=== PATIENT | female | born 1930 | race Caucasian/White ===

== ENCOUNTER 2016-08-01 17:02 | Observation (INO) | payer MEDICARE, BC ==
[~2016-08-01] VITALS: Ht 157.5 cm; Wt 71.3 kg
[2016-08-01] VITALS (7 sets, daily range): BP systolic 144–171; BP diastolic 70–97; PULSE 68–76; RESP 16–18; TEMP 97–97.4; O2SAT 95–99
[~2016-08-01 17:02] MED LIST: CALC500T42 PO; CARV3.125 PO; DOXY100T PO; DYAZ37.52 PO; FISH1000 PO; SYNT25TA PO; TAB-TAB PO; Z.0.OXYGEN INH
[2016-08-01] MEDS ORDERED: ASPIRIN 81 MG CHEW TAB PO ONE (17:15)
[2016-08-01] MEDS ORDERED: SODIUM CHLORIDE 0.9% FLUSH 5 ML FLUSH IVF PRN ×2 (17:15→18:45)
[2016-08-01] MEDS ORDERED: ACETAMINOPHEN 325 MG TAB PO ONE (17:30)
[2016-08-01] MEDS: NITROGLYCERIN 0.4 MG SL 25 TABS/BTL SL SCH ×3 (17:30→17:40)
[2016-08-01 17:31] LABS: AUTOMATED NEUTROPHIL # 3.4 TH/MM3 (1.8-7.7); BASOPHIL % 0.6 % (0.0-2.0); EOSINOPHIL # 0.1 TH/MM3 (0-0.4); EOSINOPHIL % 2.3 % (0.0-4.0); HEMO FLAGS DIFF FINAL; LYMPH % 26.5 % (9.0-44.0); LYMPHOCYTE # 1.5 TH/MM3 (1.0-4.8); MEAN CELL VOLUME 92.8 FL (80.0-100.0); MEAN CORPUSCULAR HEMOGLOBIN 31.2 PG (27.0-34.0); MEAN CORPUSCULAR HGB CONC 33.6 % (32.0-36.0); MONO % 9.6 % (0.0-8.0); PLATELET COUNT 218 TH/MM3 (150-450); RED CELL DISTRIBUTION WIDTH 12.1 % (11.6-17.2); WHITE BLOOD COUNT 5.5 TH/MM3 (4.0-11.0)
--- NOTE | 2016-08-01 17:33 | PD ---
HPI Chief Complaint: Chest Pain Time Seen by Provider: 17:15 Travel History International Travel<30 days: No Contact w/Intl Traveler<30days: No Traveled to known affect area: No History of Present Illness HPI Patient is an 85-year-old female with history of hypertension, emphysema, pacemaker, who presents to emergency room with complaints of chest pain. Patient reports that she woke up this morning and had chest pain. Patient reports that chest pain is located in her left breast, reports that pain feels like a pressure to her chest. Patient reports shortness of breath and diaphoresis with the chest pain. Reports that nothing makes the chest pain better or worse. Reports that she has had hx of similar chest pains in the past and does see Dr Vargas in the office. Reports that between her pmp certified project manager and rn interventional, it was decided that the patient go for a cardiac catheterization on August 08, 2016 to see if she has CAD. Patient reports that she has had multiple episodes of similar chest pain episodes, reports that she is prescribed nitroglycerin for her pain but does not like taking this medication as this causes her to have a headache. PFSH Past Medical History Hx Anticoagulant Therapy: No Heart Rhythm Problems: Yes Cardiac Catheterization: Yes (X 2) Cardiovascular Problems: Yes (CHOL, PACER ) COPD: Yes Coronary Artery Disease: Yes Diabetes: No Diminished Hearing: No Respiratory: Yes (EMPHYSEMA) Pneumonia: Yes Thyroid Disease: Yes ?: Not Menopausal: Yes Past Surgical History Hysterectomy: Yes Pacemaker: Yes Thoracic Surgery: Yes (PLEURAL EMPYEMA SURGERY X 12, TWO RIBS REMOVED) Other Surgery: Yes (SKIN CA X 4) Social History Alcohol Use: Yes (WINE ONCE IN AWHILE) Tobacco Use: No Substance Use: No Allergies-Medications (Allergen,Severity, Reaction): Coded Allergies: Iodine (Verified Allergy, Severe, Anaphylaxis, 08/01/16) hypoTN Advair (Verified Allergy, Mild, other, 08/01/16) "makes me feel sick" Cortisone (Verified Allergy, Mild, 08/01/16) "makes me feel sick" Erythromycin (Verified Allergy, Mild, 08/01/16) "nausea, stomach burning" Penicillin (Verified Allergy, Mild, rash, 08/01/16) Procaine (Verified Allergy, Mild, 08/01/16) "makes me feel sick" Reported Meds & Prescriptions Reported Meds & Active Scripts Active Reported Triamterene-Hydrochlorothiazide 37.5-25 Mg Tab 1 Tab PO DAILY [O2] 2 Liter INH PRN Coreg (Carvedilol) 3.125 Mg Tab 3.125 Mg PO BID Review of Systems General / Constitutional: No: Fever Eyes: No: Visual changes HENT: No: Headaches Cardiovascular: Positive: Chest Pain or Discomfort, Diaphoresis Respiratory: Positive: Shortness of Breath Gastrointestinal: No: Abdominal Pain Genitourinary: No: Dysuria Musculoskeletal: No: Pain Skin: No Rash Neurologic: No: Weakness Psychiatric: No: Depression Endocrine: No: Polydipsia Hematologic/Lymphatic: No: Easy Bruising Physical Exam Narrative GENERAL: No acute distress, nontoxic SKIN: Warm and dry. HEAD: Atraumatic. Normocephalic. ENT:. Mucous membranes pink and moist. NECK: Trachea midline. No JVD. CARDIOVASCULAR: Regular rate and rhythm. No murmur appreciated. RESPIRATORY: No accessory muscle use. Clear to auscultation. Breath sounds equal bilaterally. GASTROINTESTINAL: Abdomen soft, non-tender, nondistended. MUSCULOSKELETAL: No obvious deformities. No clubbing. No cyanosis. No edema. NEUROLOGICAL: Awake and alert.. PSYCHIATRIC: Appropriate mood and affect; insight and judgment normal. Data Data Last Documented VS Vital Signs Date Time Temp Pulse Resp B/P Pulse Ox O2 Delivery O2 Flow Rate FiO2 08/01/16 17:47 69 16 157/70 98 Nasal Cannula 2 08/01/16 17:11 97.4 Orders Electrocardiogram (08/01/16 17:14) B-Type Natriuretic Peptide (08/01/16 17:14) Ckmb (Isoenzyme) Profile (08/01/16 17:14) Complete Blood Count With Diff (08/01/16 17:14) Comprehensive Metabolic Panel (08/01/16 17:14) Magnesium (Mg) (08/01/16 17:14) Prothrombin Time / Inr (Pt) (08/01/16 17:14) Act Partial Throm Time (Ptt) (08/01/16 17:14) Troponin I (08/01/16 17:14) Chest, Single Ap (08/01/16 17:14) Ecg Monitoring (08/01/16 17:14) Iv Access Insert/Monitor (08/01/16 17:14) Oximetry (08/01/16 17:14) Aspirin Chew (Aspirin Chew) (08/01/16 17:15) Sodium Chloride 0.9% Flush (Ns Flush) (08/01/16 17:15) Nitroglycerin Sl (Nitrostat Sl) (08/01/16 17:30) Acetaminophen (Tylenol) (08/01/16 17:30) Admit Order (Ed Use Only) (08/01/16 18:38) Labs Laboratory Tests Test 08/01/16 17:20 White Blood Count 5.5 TH/MM3 Red Blood Count 4.20 MIL/MM3 Hemoglobin 13.1 GM/DL Hematocrit 39.0 % Mean Corpuscular Volume 92.8 FL Mean Corpuscular Hemoglobin 31.2 PG Mean Corpuscular Hemoglobin 33.6 % Concent Red Cell Distribution Width 12.1 % Platelet Count 218 TH/MM3 Mean Platelet Volume 6.7 FL Neutrophils (%) (Auto) 61.0 % Lymphocytes (%) (Auto) 26.5 % Monocytes (%) (Auto) 9.6 % Eosinophils (%) (Auto) 2.3 % Basophils (%) (Auto) 0.6 % Neutrophils # (Auto) 3.4 TH/MM3 Lymphocytes # (Auto) 1.5 TH/MM3 Monocytes # (Auto) 0.5 TH/MM3 Eosinophils # (Auto) 0.1 TH/MM3 Basophils # (Auto) 0.0 TH/MM3 CBC Comment DIFF FINAL Differential Comment Prothrombin Time 10.3 SEC Prothromb Time International 0.9 RATIO Ratio Activated Partial 24.5 SEC Thromboplast Time Sodium Level 138 MEQ/L Potassium Level 3.9 MEQ/L Chloride Level 100 MEQ/L Carbon Dioxide Level 32.0 MEQ/L Anion Gap 6 MEQ/L Blood Urea Nitrogen 14 MG/DL Creatinine 0.83 MG/DL Estimat Glomerular Filtration 65 ML/MIN Rate Random Glucose 96 MG/DL Calcium Level 9.7 MG/DL Magnesium Level 2.1 MG/DL Total Bilirubin 0.3 MG/DL Aspartate Amino Transf 16 U/L (AST/SGOT) Alanine Aminotransferase 21 U/L (ALT/SGPT) Alkaline Phosphatase 88 U/L Total Creatine Kinase 75 U/L Troponin I LESS THAN 0.02 NG/ML B-Type Natriuretic Peptide 48 PG/ML Total Protein 7.1 GM/DL Albumin 3.5 GM/DL MDM Medical Decision Making Medical Screen Exam Complete: Yes Emergency Medical Condition: Yes Interpretation(s) Vital Signs Date Time Temp Pulse Resp B/P Pulse Ox O2 Delivery O2 Flow Rate FiO2 08/01/16 17:22 16 99 Nasal Cannula 2 08/01/16 17:11 97.4 74 16 171/97 99 EKG at 1708: Sinus arrhythmia with first-degree AV block at 79 bpm, no acute change when compared to please EKG's from June 11, 2013. CBC & BMP Diagram 08/01/16 17:20 Last Impressions Chest X-Ray 08/01/16 1714 Signed Impressions: Service Date/Time: Monday, August 01, 2016 17:37 - CONCLUSION: No acute disease. No significant change has occurred. Brian Silvestre MD Differential Diagnosis ACS, electrolyte abnormality, arrhythmia Narrative Course Patient is a 85-year-old female who presents to emergency with complaints of chest pain. Reports that she has been feeling increased pressure to her chest began this morning upon waking up. Patient reports that she feels a "pressure" to the left side of her chest which been constant all day. She did call her rn interventional, Dr. Vargas who suggested that patient go to the emergency room for further evaluation of symptoms. Patient does report that she does have a cardiac catheterization scheduled for August 08, [address] Vargas, reports that she did discuss with Dr. Vargas possibilities of having this cardiac catheterization performed earlier. CBC, BMP, cardiac enzymes ordered for further evaluation symptoms. Give patient nitroglycerin to see if this alleviates patients chest pain. reviewed all labs and studies with patient and her family in detail pt agreeable to observation at [facility], she does not want to be transferred to [facility] Call made to medicine service for observation. case reviewed with Dr Rock who accepts pt to service Vital Signs Date Time Temp Pulse Resp B/P Pulse Ox O2 Delivery O2 Flow Rate FiO2 08/01/16 17:47 69 16 157/70 98 Nasal Cannula 2 08/01/16 17:36 16 99 Nasal Cannula 2 08/01/16 17:22 16 99 Nasal Cannula 2 08/01/16 17:11 97.4 74 16 171/97 99 Laboratory Tests Test 08/01/16 17:20 White Blood Count 5.5 TH/MM3 (4.0-11.0) Red Blood Count 4.20 MIL/MM3 (4.00-5.30) Hemoglobin 13.1 GM/DL (11.6-15.3) Hematocrit 39.0 % (35.0-46.0) Mean Corpuscular Volume 92.8 FL (80.0-100.0) Mean Corpuscular Hemoglobin 31.2 PG (27.0-34.0) Mean Corpuscular Hemoglobin 33.6 % Concent (32.0-36.0) Red Cell Distribution Width 12.1 % (11.6-17.2) Platelet Count 218 TH/MM3 (150-450) Mean Platelet Volume 6.7 FL (7.0-11.0) Neutrophils (%) (Auto) 61.0 % (16.0-70.0) Lymphocytes (%) (Auto) 26.5 % (9.0-44.0) Monocytes (%) (Auto) 9.6 % (0.0-8.0) Eosinophils (%) (Auto) 2.3 % (0.0-4.0) Basophils (%) (Auto) 0.6 % (0.0-2.0) Neutrophils # (Auto) 3.4 TH/MM3 (1.8-7.7) Lymphocytes # (Auto) 1.5 TH/MM3 (1.0-4.8) Monocytes # (Auto) 0.5 TH/MM3 (0-0.9) Eosinophils # (Auto) 0.1 TH/MM3 (0-0.4) Basophils # (Auto) 0.0 TH/MM3 (0-0.2) CBC Comment DIFF FINAL Differential Comment Prothrombin Time 10.3 SEC (9.8-11.6) Prothromb Time International 0.9 RATIO Ratio Activated Partial 24.5 SEC Thromboplast Time (24.3-30.1) Sodium Level 138 MEQ/L (136-145) Potassium Level 3.9 MEQ/L (3.5-5.1) Chloride Level 100 MEQ/L (98-107) Carbon Dioxide Level 32.0 MEQ/L (21.0-32.0) Anion Gap 6 MEQ/L (5-15) Blood Urea Nitrogen 14 MG/DL (7-18) Creatinine 0.83 MG/DL (0.50-1.00) Estimat Glomerular Filtration 65 ML/MIN (>89) Rate Random Glucose 96 MG/DL (74-106) Calcium Level 9.7 MG/DL (8.5-10.1) Magnesium Level 2.1 MG/DL (1.5-2.5) Total Bilirubin 0.3 MG/DL (0.2-1.0) Aspartate Amino Transf 16 U/L (15-37) (AST/SGOT) Alanine Aminotransferase 21 U/L (10-53) (ALT/SGPT) Alkaline Phosphatase 88 U/L (45-117) Total Creatine Kinase 75 U/L (26-192) Troponin I LESS THAN 0.02 NG/ML (0.02-0.05) Total Protein 7.1 GM/DL (6.4-8.2) Albumin 3.5 GM/DL (3.4-5.0) Vital Signs Date Time Temp Pulse Resp B/P Pulse Ox O2 Delivery O2 Flow Rate FiO2 08/01/16 17:47 69 16 157/70 98 Nasal Cannula 2 08/01/16 17:36 16 99 Nasal Cannula 2 08/01/16 17:22 16 99 Nasal Cannula 2 08/01/16 17:11 97.4 74 16 171/97 99 Diagnosis Primary Impression: Chest pain Qualified Code: R07.9 - Chest pain, unspecified type Admitting Information Admitting Physician Requests: Observation Edna Calabrese DO Aug 01, 2016 17:33
[2016-08-01 17:39] LABS: CHLORIDE 100 MEQ/L (98-107); POTASSIUM 3.9 MEQ/L (3.5-5.1); SODIUM (NA) 138 MEQ/L (136-145)
[2016-08-01 17:43] LABS: ANION GAP 6 MEQ/L (5-15); BLOOD UREA NITROGEN 14 MG/DL (7-18); MAGNESIUM 2.1 MG/DL (1.5-2.5)
[2016-08-01 17:44] LABS: APTT (PATIENT) 24.5 SEC (24.3-30.1); INTERNATIONAL NORMALIZED RATIO 0.9 RATIO; PROTHROMBIN TIME - PATIENT 10.3 SEC (9.8-11.6)
[2016-08-01 17:46] LABS: ALT (GPT) 21 U/L (10-53); AST (GOT) 16 U/L (15-37); GLOMERULAR FILTRATION RATE 65 ML/MIN (>89)
[2016-08-01] MEDS ORDERED: O2 INH (17:47)
[2016-08-01] MEDS ORDERED: CARV3.125 PO (17:47)
[2016-08-01] MEDS ORDERED: TRIA37.5 PO (17:47)
[2016-08-01 17:48] LABS: TOTAL BILIRUBIN ADULT 0.3 MG/DL (0.2-1.0)
[2016-08-01 17:49] LABS: ALKALINE PHOSPHATASE 88 U/L (45-117)
--- NOTE | 2016-08-01 17:51 | RADHPO ---
EXAM DATE/TIME: 08/01/2016 17:37 [facility] COMPARISON: CHEST SINGLE AP, June 11, 2013, 15:02. INDICATIONS : Chest pressure, weakness starting today MEDICAL HISTORY : Cardiovascular disease. SURGICAL HISTORY : Pacemaker. ENCOUNTER: Initial ACUITY: 1 day PAIN SCORE: 0/10 LOCATION: Bilateral chest FINDINGS: Bipolar pacemaker remains in place overlying the left hemithorax with atherosclerotic changes of the aorta and chronic elevation left hemidiaphragm. There is no acute cardiopulmonary process. Vascularit y is normal. CONCLUSION: No acute disease. No significant change has occurred. Brian Silvestre MD on August 01, 2016 at 17:49 Board Certified Radiologist. This report was verified electronically.
[2016-08-01 18:00] LABS: CREATINE KINASE 75 U/L (26-192)
[2016-08-01] MEDS ORDERED: ACETAMINOPHEN 500 MG CPLT PO PRN (18:45)
[2016-08-01] MEDS ORDERED: ACETAMINOPHEN/HYDROcodone 325 MG/7.5 MG TAB PO PRN (18:45)
[2016-08-01] MEDS ORDERED: NITROGLYCERIN 0.4 MG SL 25 TABS/BTL SL PRN (18:45)
[2016-08-01] MEDS ORDERED: ONDANSETRON HCL 4 MG/2 ML VIAL IV PRN (18:45)
[2016-08-01] MEDS ORDERED: MORPHINE SULFATE 4 MG/ML INJ IV PRN (18:45)
[2016-08-01] MEDS: PANTOPRAZOLE SOD 40 MG DELAYED RELEASE TAB PO SCH (19:32)
[2016-08-01] MEDS: CARVEDILOL 3.125 MG TAB PO SCH (19:39)
[2016-08-01] MEDS ORDERED: SODIUM CHLORIDE 0.9% FLUSH 5 ML FLUSH IVF SCH (21:00)
[2016-08-01 23:42] LABS: CREATINE KINASE 62 U/L (26-192)
[2016-08-02] VITALS: BP_SYST 118; BP_SYST 148; BP_DIAS 79; BP_DIAS 89; PULSE 71; RESP 18; TEMP 96.8; O2SAT 97
[2016-08-02 04:00] VITALS: BP 122/60; PULSE 60; RESP 18; TEMP 96.9; O2SAT 97
[2016-08-02 06:54] LABS: CREATINE KINASE 60 U/L (26-192)
[2016-08-02 08:00] VITALS: BP 148/83; PULSE 60; PULSE 68; RESP 18; TEMP 97; O2SAT 98
[2016-08-02 08:30] VITALS: O2SAT 98
--- NOTE | 2016-08-02 08:39 | HHI.HP ---
[facility] Miguel Angel Acosta MD Admission Diagnosis chest pain Diagnoses: (1) Chest pain Diagnosis: Principal (2) SOB (shortness of breath) Diagnosis: Principal (3) Leg pain, bilateral Diagnosis: Principal Chief Complaint: chest pressure, SOB Travel History International Travel<30 Days: No Contact w/Intl Traveler <30 Da: No Traveled to Known Affected Are: No History of Present Illness 85-year-old female with history of A. fib, pacemaker, hyperlipidemia, emphysema and lung scarring from numerous episodes of pneumonia is admitted for chest pain. Patient states that for the past 2-3 weeks she has become more short of breath, her legs are hurting, and she has had chest pressure. The patient states everything became worse yesterday. She states she couldn't walk because her legs were tired and she was short of breath and weak. She admits to pressure over both sides of anterior chest and states it lasted all day yesterday. Patient uses 2 L of oxygen at night and as needed during the daytime for the past 8 years but states recently she has been using the oxygen more frequently during the day, all day. She called Dr. Vargas who recommended she come to the ED. Patient denies any diaphoresis recently. She does state she gets pain in the left neck and left arm which occurs on and off but did not experience this yesterday. She denies any numbness or tingling. Patient sleeps with the head of the bed elevated 6 inches with 2 pillows, but this is chronic. Denies increased leg swelling although takes triamterene for this. Patient states she is active and walks on the treadmill, but states she will now walk 10 minutes but then starts to experience pressure in her chest. States she used to walk for an hour. Admits to shortness of breath on exertion. Patient states her dry wall sprayer is Dr. Vargas and entrepreneurial finance professor is Dr. Jiménez. She is scheduled for cardiac catheterization on August 08, 2016. She states she has a history of emphysema and also scar tissue as she has had numerous episodes of pneumonia as a child and as an adult. She states she's had pneumonia at least 10 times in the past and 4 time she almost . Denied fevers or chills. She has chronic cough with sputum production. She has chronic hemoptysis last occurring 3 days ago. She states she was informed by her entrepreneurial finance professor that she should not be on blood thinners due to this. Patient admits to superficial venous thrombosis in the legs during but denies any history of DVT. She denies any recent immobilization of the legs , active cancer, recent trauma or surgery in the last 12 weeks. Denies recent hospitalization. She occasionally gets generalized abdominal pain, denies any nausea or vomiting. States she may have some IBS issues but denies any recent diarrhea; states she gets constipation although last bowel movement was yesterday, and states the stool softener may give her palpitations. Review of Systems Constitutional: DENIES: Diaphoretic episodes, Fever, Chills Eyes: DENIES: Blurred vision Ears, nose, mouth, throat: COMPLAINS OF: Running Nose (allergies) Respiratory: COMPLAINS OF: Cough, Hemoptysis (chronic), Sputum production, Shortness of breath Cardiovascular: COMPLAINS OF: Chest pain, Dyspnea on Exertion, Orthopnea (?), DENIES: Lower Extremity Edema Gastrointestinal: COMPLAINS OF: Abdominal pain (chronic), DENIES: Diarrhea, Nausea, Vomiting Genitourinary: COMPLAINS OF: Urinary frequency (chronic due to drinking a lot of fluids), DENIES: Dysuria Musculoskeletal: COMPLAINS OF: Neck pain Integumentary: DENIES: Rash Neurologic: DENIES: Paresthesias Other + weakness Past Family Social History Past Medical History Emphysema, scarring of lungs due to numerous episodes of pneumonia Chronic hemoptysis Atrial fibrillation Hyperlipidemia Thyroid disease although states she is no longer medication Past Surgical History Cardiac catheterization x 3; last one was in 2011; no stents or intervention. Pacemaker placement 3 years ago Laser surgery R leg by Dr. 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 Reported Medications Triamterene-Hydrochlorothiazide 37.5-25 Mg Tab 1 Tab PO DAILY [O2] 2 Liter INH PRN Coreg (Carvedilol) 3.125 Mg Tab 3.125 Mg PO BID Allergies: Coded Allergies: Iodine (Verified Allergy, Severe, Anaphylaxis, 08/01/16) hypoTN Advair (Verified Allergy, Mild, other, 08/01/16) "makes me feel sick" Cortisone (Verified Allergy, Mild, 08/01/16) "makes me feel sick" Erythromycin (Verified Allergy, Mild, 08/01/16) "nausea, stomach burning" Penicillin (Verified Allergy, Mild, rash, 08/01/16) Procaine (Verified Allergy, Mild, 08/01/16) "makes me feel sick" Family History Mother: CHF; at the age of 95. Father: Lung cancer; heavy smoker. Brother: CHF, Diabetes in old age. Brother: Emphysema; chain smoker Brother of ruptured brain aneurysm at the age of 80. Social History Patient lives with her at home. She has 5 daughters. Patient has a glass of wine once in a while. Denies any history of cigarette smoking. Denies history of illicit drug use. Physical Exam Vital Signs Vital Signs Date Time Temp Pulse Resp B/P Pulse Ox O2 Delivery O2 Flow Rate FiO2 08/02/16 08:00 68 08/02/16 04:00 96.9 60 18 122/60 97 08/02/16 00:00 96.8 71 18 148/79 97 08/01/16 21:30 68 08/01/16 21:00 97.0 70 18 144/73 95 08/01/16 20:22 98 Nasal Cannula 2.00 08/01/16 20:21 76 18 146/76 98 Nasal Cannula 2 08/01/16 19:30 Nasal Cannula 2 08/01/16 17:47 69 16 157/70 98 Nasal Cannula 2 08/01/16 17:36 16 99 Nasal Cannula 2 08/01/16 17:22 16 99 Nasal Cannula 2 08/01/16 17:11 97.4 74 16 171/97 99 Physical Exam GENERAL: This is a pleasant well-nourished, well-developed patient, in no apparent distress. Appears younger than her stated age. SKIN: No rashes, ecchymoses or lesions. Warm and dry. HEAD: Atraumatic. Normocephalic. EYES: Pupils equal round. Extraocular motions intact. No scleral icterus. No injection or drainage. ENT: MMM. Airway patent. NECK: Trachea midline. No carotid bruits bilaterally. CARDIOVASCULAR: Regular rate and irregular rhythm without murmurs. RESPIRATORY: Coarse breath sounds over the right base. No wheezes. GASTROINTESTINAL: Abdomen soft, non-tender, nondistended. No guarding. MUSCULOSKELETAL: Tender to palpation over bilateral calves. No lower extremity edema bilaterally. 2+ DP pulses bilaterally. NEUROLOGICAL: Awake and alert. No obvious cranial nerve deficits. Motor grossly within normal limits. Five out of 5 muscle strength in bilateral arms and legs. Normal speech. Laboratory Laboratory Tests Test 08/01/16 08/01/16 08/02/16 17:20 23:13 05:10 White Blood Count 5.5 Red Blood Count 4.20 Hemoglobin 13.1 Hematocrit 39.0 Mean Corpuscular Volume 92.8 Mean Corpuscular Hemoglobin 31.2 Mean Corpuscular Hemoglobin 33.6 Concent Red Cell Distribution Width 12.1 Platelet Count 218 Mean Platelet Volume 6.7 Neutrophils (%) (Auto) 61.0 Lymphocytes (%) (Auto) 26.5 Monocytes (%) (Auto) 9.6 Eosinophils (%) (Auto) 2.3 Basophils (%) (Auto) 0.6 Neutrophils # (Auto) 3.4 Lymphocytes # (Auto) 1.5 Monocytes # (Auto) 0.5 Eosinophils # (Auto) 0.1 Basophils # (Auto) 0.0 CBC Comment DIFF FINAL Differential Comment Prothrombin Time 10.3 Prothromb Time International 0.9 Ratio Activated Partial 24.5 Thromboplast Time Sodium Level 138 Potassium Level 3.9 Chloride Level 100 Carbon Dioxide Level 32.0 Anion Gap 6 Blood Urea Nitrogen 14 Creatinine 0.83 Estimat Glomerular Filtration 65 Rate Random Glucose 96 Calcium Level 9.7 Magnesium Level 2.1 Total Bilirubin 0.3 Aspartate Amino Transf 16 (AST/SGOT) Alanine Aminotransferase 21 (ALT/SGPT) Alkaline Phosphatase 88 Total Creatine Kinase 75 62 60 Troponin I LESS THAN 0.02 LESS THAN 0.02 LESS THAN 0.02 B-Type Natriuretic Peptide 48 Total Protein 7.1 Albumin 3.5 Result Diagram: 08/01/16 1720 08/01/16 172 Imaging Last Impressions Chest X-Ray 08/01/161713 Signed Impressions: Service Date/Time: Monday, August 01, 2016 17:37 - CONCLUSION: No acute disease. No significant change has occurred. Brian Silvestre MD Assessment and Plan Assessment and Plan 85-year-old female with: Chest pain/SOB: Patient has history of chest pain. She has had increasing chest pressure and SOB over the past 2-3 weeks requiring increase in oxygen use even when O2 sat normal per patient. Patient is scheduled for cardiac catheterization on August 08. EKGs 3 personally interpreted with atrial pacing, extensive infarct, extensive IV conduction defect, first-degree AV block , and left axis deviation; EKGs appear the same as EKG on 06/11/13. Troponin 3 less than 0.02. BNP normal. No leg swelling on exam. Temp was elevated at 100.1 on arrival but has remained afebrile. Patient has chronic cough and hemoptysis and is under the care of Dr. Jiménez. Mid coarse breath sounds at R base, but chest x-ray personally interpreted with no acute disease; pacemaker over the left chest. White blood cell count normal. -Patient refused aspirin and nitroglycerin in the ED -325 mg aspirin daily -Nitro/[facility]/morphine prn chest pain -I spoke with Dr. Vargas, the patient's dry wall sprayer at ~0925. He states the patient's stress test was negative and catheterization is nonemergent. He states cath is scheduled due to recurrent symptoms. I discussed with him evaluation for pulmonary embolus and that the patient is unable to get a CT pulmonary angiogram due to contrast allergy and would have to wait extensive amount of time for premedication. I informed him of patient's chronic lung disease, and he states patient can undergo a VQ scan. VQ scan ordered to rule out pulmonary embolus. If negative for pulmonary embolus, Dr. Vargas states patient can be discharged. -Continue home Coreg and triamterene/HCTZ Leg pain/weakness: Patient has had increasing leg fatigue as well as calf pain. She has calf pain on exam. Although she has a history of leg swelling there is no swelling present on exam today. She has good arterial blood flow. -B/L Doppler US to rule out DVT -PT to eval and treat after studies performed DVT prevention: TEDs/SCDs provided no DVTs. Code Status Discussed with patient. FULL code. Discussed Condition With patient, Dr. Penaloza, and Dr. Vargas Attending Statement The exam, history, and the medical decision-making described in the above note were completed with my assistance as the dictating practitioner. I attest that I had a [id number] encounter with the patient on the same day, and personally performed all of the history, exam, or medical decision making. I reviewed and agree with the plan. Patient seen for atypical chest discomfort and VQ scan, ultrasound discussed with patient and spouse and nursing team. Patient will need to follow with primary care provider and dry wall sprayer. Discharge home Activity unrestricted diet heart healthy Problem Qualifiers (1) Chest pain: Qualified Code: R07.9 - Chest pain, unspecified type Gisele Carl Aug 02, 2016 08:39 Susannah Penaloza MD Aug 02, 2016 14:42
[2016-08-02] MEDS ORDERED: ASPIRIN 325 MG TAB PO SCH (09:00)
[2016-08-02] MEDS ORDERED: diphenhydrAMINE HCL 50 MG CAP PO ONE (09:00)
[2016-08-02] MEDS ORDERED: TRIAMTERENE/HCTZ 37.5 MG/25 MG TAB PO SCH (09:00)
[2016-08-02] MEDS: CARVEDILOL 3.125 MG TAB PO SCH (10:34)
[2016-08-02] MEDS: PANTOPRAZOLE SOD 40 MG DELAYED RELEASE TAB PO SCH (10:35)
--- NOTE | 2016-08-02 10:44 | RADHPO ---
EXAM DATE/TIME: 08/02/2016 09:52 [facility] COMPARISON: No previous studies available for comparison. EXTERNAL COMPARISON : [facility], US LEG, BILATERAL VENOUS DOPPLER, August 25, 2012 INDICATIONS : Pain in bilateral lower extremities. MEDICAL HISTORY : Hypercholesterolemia. Thyroid disease. Coronary artery disease. COPD. Pneumonia. Hemoptysis. Emphys darnell. Skin cancer. SURGICAL HISTORY : Hysterectomy.Cholecystectomy. Pacemaker.Skin cancer surgery x 4. Pleural empyema surgery x 12. Ribs r emoved x 2. Cataracts. Cardiac cath x 2. ENCOUNTER: Initial ACUITY: 4 - 6 days PAIN SCORE: 5/10 LOCATION: Bilateral legs. TECHNIQUE: Venous ultrasound of the left and right leg was performed from the inguinal ligament to the proximal calf. Real-time, color Doppler and spectral tracing, compression and augmentation techniques were us ed. FINDINGS: RIGHT LEG: There is nonocclusive clot identified within the superficial greater saphenous vein. There is normal compressibility of the remainder of the deep venous system from the inguinal region to the proximal c half-way. No echogenic clot is seen in the lumen of the common femoral, femoral, popliteal, and posterior tibial veins. There is a normal response of the venous system to proximal and distal augmentation a nd respiration. LEFT LEG: There is normal compressibility of the deep venous system from the inguinal region to the proximal ca lf. No echogenic clot is seen in the lumen of the common femoral, femoral, popliteal, and posterior tibial veins. There is a normal response of the venous system to proximal and distal augmentation an d respiration. CONCLUSION: Nonocclusive clot identified within the greater saphenous vein. The remainder of the right deep venous system is within normal limits. The left deep venous system is normal. Nadia Rodriguez MD on August 02, 2016 at 10:38 Board Certified Radiologist. This report was verified electronically.
--- NOTE | 2016-08-02 11:59 | RADHPO ---
EXAM DATE/TIME: 08/02/2016 11:35 [facility] COMPARISON: CHEST SINGLE AP, August 01, 2016, 17:37. INDICATIONS : Chest pain, diaphoresis and shortness of breath. DOSE: 8.6 mCi Tc99m MAA IV 0.9 mCi Tc99m DTPA aerosol MEDICAL HISTORY : Chronic obstructive pulmonary disease. Hypertension. SURGICAL HISTORY : Hysterectomy. Pacemaker. Cardiac catheterization. ENCOUNTER: Initial ACUITY: 1 day PAIN SCALE: 3/10 LOCATION: chest TECHNIQUE: Following five minutes of tidal breathing of DTPA aerosol, planar images of the lungs were performed in eight projections. The patient was then injected with MAA, and eight-view perfusion scan was perf ormed. FINDINGS: There is a very heterogeneous pattern of aerosol delivery to the periphery of both lungs. Clumping o f activity is present to a mild degree and the central airways. There is a suspected subsegmental foc al ventilatory defect in the left upper lobe. The perfusion lung scan demonstrates a homogenous pattern of uptake in both lungs. There is a subsegm ental area of decreased perfusion in the left upper lobe. CONCLUSION: There is a single matched subsegmental area of decreased ventilation and perfusion in the left upper lobe without a corresponding chest x-ray abnormality. No V/Q mismatches are identified. Examination i s low probability for PE. Gerardo Hahn MD on August 02, 2016 at 11:53 Board Certified Radiologist. This report was verified electronically.
[2016-08-02 12:00] VITALS: BP 142/80; PULSE 64; RESP 20; TEMP 97.2; O2SAT 97
--- NOTE | 2016-08-02 14:39 | HHI.DCPOC ---
Discharge Care Plan Diagnosis: (1) Chest pain (2) SOB (shortness of breath) Goals to Promote Your Health * To prevent worsening of your condition and complications * To maintain your health at the optimal level Directions to Meet Your Goals Take your medications as prescribed Follow your dietary instruction Follow activity as directed Keep your appointments as scheduled Take your immunizations and boosters as scheduled If your symptoms worsen call your PCP, if no PCP go to Urgent Care Center or Emergency Room Smoking is Dangerous to Your Health. Avoid second hand smoke Call the 24-hour hour crisis hotline for domestic abuse at Susannah Penaloza MD Aug 02, 2016 14:39
--- NOTE | 2016-08-02 18:25 | EKG ---
Date Performed: 08/01/2016 Time Performed: 17:08:20 PTAGE: 85 years EKG: Sinus rhythm / possible atrial pacing. Left axis deviation IV conduction defect Extensive infarct - age undetermi helena When compared to previous tracing, premature ventricular Contractions are now present. Abnormal E CG PREVIOUS TRACING : 06/11/2013 15.12 DOCTOR: Javi Willett Interpretating Date/Time 08/02/2016 18:23:53
--- NOTE | 2016-08-02 18:26 | EKG ---
Date Performed: 08/01/2016 Time Performed: 23:00:24 PTAGE: 85 years EKG: Demand atrial pacing Left axis deviation IV conduction defect Extensive infarct - age undet ermined When compared to previous tracing, premature atrial contractions Have resolved. Abnormal ECG PREVIOUS TRACING : 08/01/2016 17.08 DOCTOR: Javi Willett Interpretating Date/Time 08/02/2016 18:24:52
--- NOTE | 2016-08-02 18:26 | EKG ---
Date Performed: 08/02/2016 Time Performed: 05:09:20 PTAGE: 85 years EKG: Atrial pacing Left axis deviation Extensive IVCD Extensive infarct - age undetermined Since previous tracing, no significant change noted Abnormal ECG PREVIOUS TRACING : 08/01/2016 23.00 DOCTOR: Javi Willett Interpretating Date/Time 08/02/2016 18:25:16
== END 2016-08-02 15:00 | disposition home or self-care (01) ==
LOC: PHED 17:02 → PHEDA 18:40 → PH3A 21:00
PROVIDERS: ADMIT Hospitalist; ATTEND Hospitalist
DX: R07.9 Chest pain, unspecified (principal); R06.02 Shortness of breath; R94.31 Abnormal electrocardiogram [ECG] [EKG]; I48.91 Unspecified atrial fibrillation; I25.10 Atherosclerotic heart disease of native coronary artery without angina pectoris; J44.9 Chronic obstructive pulmonary disease, unspecified; I10 Essential (primary) hypertension; E78.5 Hyperlipidemia, unspecified; Z95.0 Presence of cardiac pacemaker; Z91.041 Radiographic dye allergy status; Z79.899 Other long term (current) drug therapy; Z85.828 Personal history of other malignant neoplasm of skin
CPT/HCPCS: 71010; 78582; 80053; 82550; 83735; 83880; 84484; 85025; 85610; 85730; 93005; 93970; 99285; A9540; A9567; G0378

== ENCOUNTER 2017-02-04 12:31 | Emergency (ER) | payer MEDICARE, BC ==
[~2017-02-04] VITALS: Ht 157.5 cm; Wt 67.0 kg
[~2017-02-04 12:31] MED LIST changes: -CALC500T42 PO; -DOXY100T PO; -DYAZ37.52 PO; -FISH1000 PO; +O2 INH; -SYNT25TA PO; -TAB-TAB PO; +TRIA37.5 PO; -Z.0.OXYGEN INH
[2017-02-04 12:53] VITALS: BP 151/74; PULSE 63; RESP 16; TEMP 97.8; O2SAT 97
[2017-02-04] MEDS ORDERED: SODIUM CHLORIDE 0.9% FLUSH 10 ML FLUSH IVF PRN (13:00)
[2017-02-04 13:01] VITALS: O2SAT 97
[2017-02-04 13:01] LABS: AUTOMATED NEUTROPHIL # 5.3 TH/MM3 (1.8-7.7); BASOPHIL % 0.6 % (0.0-2.0); EOSINOPHIL # 0.1 TH/MM3 (0-0.4); EOSINOPHIL % 1.6 % (0.0-4.0); HEMATOCRIT 39.2 % (35.0-46.0); HEMO FLAGS DIFF FINAL; LYMPH % 18.1 % (9.0-44.0); LYMPHOCYTE # 1.3 TH/MM3 (1.0-4.8); MEAN CELL VOLUME 92.3 FL (80.0-100.0); MEAN CORPUSCULAR HEMOGLOBIN 31.6 PG (27.0-34.0); MEAN CORPUSCULAR HGB CONC 34.2 % (32.0-36.0); MONO % 6.4 % (0.0-8.0); NEUT % 73.3 % (16.0-70.0); PLATELET COUNT 219 TH/MM3 (150-450); RED BLOOD COUNT 4.25 MIL/MM3 (4.00-5.30); RED CELL DISTRIBUTION WIDTH 12.5 % (11.6-17.2); WHITE BLOOD COUNT 7.2 TH/MM3 (4.0-11.0)
--- NOTE | 2017-02-04 13:04 | PD ---
HPI Chief Complaint: Chest Pain Time Seen by Provider: 12:50 Travel History International Travel<30 days: No Contact w/Intl Traveler<30days: No Traveled to known affect area: No History of Present Illness HPI 86 -year-old female arrives to the ER with a complaint of chest pain which she believes might be pleurisy. It's located in the left side. She also has "crackles" which were appreciated by her visiting nurse who actually visits for her . She reports she typically gets pneumonia any time she becomes overworked. She reports she has been overworked lately in an attempt to care for her , recently discharged from the hospital. She reports an occasional productive cough. She denies fever. Duration about 6 days. She is on day 4 of the [facility] and reports her symptoms have worsened over the past few days. PFSH Past Medical History Hx Anticoagulant Therapy: No Asthma: No Blood Disorders: No Heart Rhythm Problems: Yes Cancer: Yes (skin) Cardiac Catheterization: Yes (X 2) Cardiovascular Problems: Yes (CHOL, PACER ) High Cholesterol: Yes Chemotherapy: No Chest Pain: Yes (on admit) Congestive Heart Failure: No COPD: Yes Coronary Artery Disease: Yes Diabetes: No Diminished Hearing: No Endocrine: Yes Genitourinary: No Immune Disorder: No Musculoskeletal: No Neurologic: No Psychiatric: No Reproductive: No Respiratory: Yes (EMPHYSEMA) Pneumonia: Yes Radiation Therapy: No Sleep Apnea: No Thyroid Disease: Yes Menopausal: Yes Past Surgical History Body Medical Devices: pacemaker Eye Surgery: Yes (BILAT CATARACTS) Hysterectomy: Yes Pacemaker: Yes Thoracic Surgery: Yes (PLEURAL EMPYEMA SURGERY X 12, TWO RIBS REMOVED) Other Surgery: Yes (SKIN CA X 4) Social History Alcohol Use: Yes (WINE ONCE IN AWHILE) Tobacco Use: No Substance Use: No Allergies-Medications (Allergen,Severity, Reaction): Coded Allergies: Iodine (Verified Allergy, Severe, Anaphylaxis, 02/04/17) hypoTN Advair (Verified Allergy, Mild, other, 02/04/17) "makes me feel sick" Cortisone (Verified Allergy, Mild, 02/04/17) "makes me feel sick" Erythromycin (Verified Allergy, Mild, 02/04/17) "nausea, stomach burning" Penicillin (Verified Allergy, Mild, rash, 02/04/17) Procaine (Verified Allergy, Mild, 02/04/17) "makes me feel sick" Reported Meds & Prescriptions Reported Meds & Active Scripts Active Levofloxacin 750 Mg Tablet 750 Mg PO DAILY 6 Days Reported Triamterene-Hydrochlorothiazide 37.5-25 Mg Tab 1 Tab PO DAILY [O2] 2 Liter INH PRN Coreg (Carvedilol) 3.125 Mg Tab 3.125 Mg PO BID Review of Systems Except as stated in HPI: all other systems reviewed are Neg General / Constitutional: No: Fever Respiratory: Positive: Cough Physical Exam Narrative GENERAL: 86-year-old female pleasant no acute distress SKIN: Warm and dry. HEAD: Atraumatic. Normocephalic. EYES: Pupils equal and round. No scleral icterus. No injection or drainage. ENT: No nasal bleeding or discharge. Mucous membranes pink and moist. NECK: Trachea midline. No JVD. CARDIOVASCULAR: Regular rate and rhythm. RESPIRATORY: Occasional crackles primarily on the left side. No tachypnea. GASTROINTESTINAL: Abdomen soft, non-tender, nondistended. Hepatic and splenic margins not palpable. MUSCULOSKELETAL: Extremities without clubbing, cyanosis, or edema. No obvious deformities. NEUROLOGICAL: Awake and alert. No obvious cranial nerve deficits. Motor grossly within normal limits. Five out of 5 muscle strength in the arms and legs. Normal speech. PSYCHIATRIC: Appropriate mood and affect; insight and judgment normal. Data Data Last Documented VS Vital Signs Date Time Temp Pulse Resp B/P Pulse Ox O2 Delivery O2 Flow Rate FiO2 02/04/17 14:13 75 20 160/84 98 02/04/17 13:01 Nasal Cannula 2 02/04/17 12:53 97.8 VS reviewed Orders Electrocardiogram (02/04/17 12:51) Basic Metabolic Panel (Bmp) (02/04/17 12:51) Complete Blood Count With Diff (02/04/17 12:51) Chest, Single Ap (02/04/17 12:51) Ecg Monitoring (02/04/17 12:51) Iv Access Insert/Monitor (02/04/17 12:51) Oximetry (02/04/17 12:51) Oxygen Administration (02/04/17 12:51) Sodium Chloride 0.9% Flush (Ns Flush) (02/04/17 13:00) Troponin I (02/04/17 12:51) Levofloxacin (Levaquin) (02/04/17 14:00) Labs Laboratory Tests Test 02/04/17 12:55 White Blood Count 7.2 TH/MM3 Red Blood Count 4.25 MIL/MM3 Hemoglobin 13.4 GM/DL Hematocrit 39.2 % Mean Corpuscular Volume 92.3 FL Mean Corpuscular Hemoglobin 31.6 PG Mean Corpuscular Hemoglobin 34.2 % Concent Red Cell Distribution Width 12.5 % Platelet Count 219 TH/MM3 Mean Platelet Volume 6.8 FL Neutrophils (%) (Auto) 73.3 % Lymphocytes (%) (Auto) 18.1 % Monocytes (%) (Auto) 6.4 % Eosinophils (%) (Auto) 1.6 % Basophils (%) (Auto) 0.6 % Neutrophils # (Auto) 5.3 TH/MM3 Lymphocytes # (Auto) 1.3 TH/MM3 Monocytes # (Auto) 0.5 TH/MM3 Eosinophils # (Auto) 0.1 TH/MM3 Basophils # (Auto) 0.0 TH/MM3 CBC Comment DIFF FINAL Differential Comment Sodium Level 137 MEQ/L Potassium Level 3.7 MEQ/L Chloride Level 100 MEQ/L Carbon Dioxide Level 27.6 MEQ/L Anion Gap 9 MEQ/L Blood Urea Nitrogen 10 MG/DL Creatinine 0.63 MG/DL Estimat Glomerular Filtration 89 ML/MIN Rate Random Glucose 88 MG/DL Calcium Level 9.6 MG/DL Troponin I LESS THAN 0.02 NG/ML MDM Medical Decision Making Medical Screen Exam Complete: Yes Emergency Medical Condition: Yes Medical Record Reviewed: Yes Differential Diagnosis Pneumonia, acute coronary syndrome, pleurisy, anemia, atelectasis Narrative Course EKG: electronic ventricular pacemaker, rate 63 CXR: no dense consolidation CBC & BMP Diagram 02/04/17 12:55 Tn < 0.02 The patient is resting comfortably and feels better, is alert and in no distress. The patients results and examination findings were discussed. The repeat examination is unremarkable and benign. The history, exam, diagnostic testing, and current condition do not suggest any significant pathology to warrant further testing, continued ED treatment, admission, or surgical evaluation at this point. The vital signs have been stable. The patient does not have uncontrollable pain, intractable vomiting, or other significant symptoms. The patient's condition is stable and appropriate for discharge. The patient will pursue further outpatient evaluation with a primary care physician or other designated or consulting physician as indicated in the discharge instructions. The patient expressed understanding and was agreeable with this plan. Diagnosis Primary Impression: Chest crackles Referrals: Primary Care Physician 2 days Additional Instructions: You have a choice when it comes to health care, and we are glad that you chose [facility]. Hopefully, we have met your expectations on today's visit. You are welcome to return to [facility] at any time, as we are committed to meeting the health care needs of our community. Med/Other Pt SpecificInfo: Prescription(s) given Scripts Levofloxacin 750 Mg [id number] Mg PO DAILY 6 Days Ref 0 Prov:Eugene Martinez MD 02/04/17 Disposition: 01 DISCHARGE HOME Condition: Stable Eugene Martinez MD Feb 04, 2017 13:04
[2017-02-04 13:11] LABS: CHLORIDE 100 MEQ/L (98-107); POTASSIUM 3.7 MEQ/L (3.5-5.1); SODIUM (NA) 137 MEQ/L (136-145)
[2017-02-04 13:13] LABS: ANION GAP 9 MEQ/L (5-15); BICARBONATE 27.6 MEQ/L (21.0-32.0)
[2017-02-04 13:14] LABS: BLOOD UREA NITROGEN 10 MG/DL (7-18)
[2017-02-04 13:17] LABS: GLOMERULAR FILTRATION RATE 89 ML/MIN (>89)
[2017-02-04] MEDS ORDERED: LEVO750T3 PO (13:51)
--- NOTE | 2017-02-04 13:58 | RADRPT ---
EXAM DATE/TIME: 02/04/2017 13:26 [facility] COMPARISON: CHEST SINGLE AP, August 01, 2016, 17:37. INDICATIONS : Short of breath MEDICAL HISTORY : pneumonia, Empyema SURGICAL HISTORY : Pacemaker. Left side rib removal ENCOUNTER: Initial ACUITY: 2 days PAIN SCORE: 0/10 LOCATION: Bilateral chest FINDINGS: There is a stable dual-lead pacemaker with battery pack obscuring a portion of the left mid lung. Sta ble elevation of the left hemidiaphragm. Mild right basilar airspace disease unchanged from prior exa m. Cardiomediastinal contours are stable. Remainder of the exam is unchanged. CONCLUSION: 1. No acute abnormality or significant interval change. Sohan Morillo MD on February 04, 2017 at 13:55 Board Certified Radiologist. This report was verified electronically.
[2017-02-04] MEDS ORDERED: LEVOFLOXACIN 750 MG TAB PO ONE (14:00)
[2017-02-04 14:13] VITALS: BP 160/84
--- NOTE | 2017-02-05 13:50 | EKG ---
Date Performed: 02/04/2017 Time Performed: 12:39:56 PTAGE: 86 years EKG: ELECTRONIC VENTRICULAR PACEMAKER Since previous tracing, no significant change noted ABNORM AL RHYTHM ECG PREVIOUS TRACING : 08/02/2016 05.09 DOCTOR: Poncho Rucker Interpretating Date/Time 02/05/2017 13:48:25
== END 2017-02-04 14:19 | disposition home or self-care (01) ==
LOC: PHEFT 12:31
DX: R09.89 Other specified symptoms and signs involving the circulatory and respiratory systems (principal); R07.89 Other chest pain; R05 Cough; R94.31 Abnormal electrocardiogram [ECG] [EKG]; E07.9 Disorder of thyroid, unspecified; E78.00 Pure hypercholesterolemia, unspecified; Z95.0 Presence of cardiac pacemaker; Z86.79 Personal history of other diseases of the circulatory system; Z87.09 Personal history of other diseases of the respiratory system
CPT/HCPCS: 71010; 80048; 84484; 85025; 93005; 99285

== ENCOUNTER 2017-02-11 11:08 | Emergency (ER) | payer MEDICARE, BC ==
[~2017-02-11] VITALS: Ht 157.5 cm; Wt 68.0 kg
[~2017-02-11 11:08] MED LIST changes: +LEVO750T3 PO
[2017-02-11 11:20] VITALS: BP 177/92; PULSE 66; RESP 18; TEMP 97.6; O2SAT 97
[2017-02-11] MEDS ORDERED: SODIUM CHLORIDE 0.9% FLUSH 10 ML FLUSH IVF PRN (11:45)
[2017-02-11 11:53] VITALS: RESP 16; O2SAT 97
[2017-02-11 11:59] LABS: AUTOMATED NEUTROPHIL # 3.7 TH/MM3 (1.8-7.7); BASOPHIL # 0.1 TH/MM3 (0-0.2); BASOPHIL % 1.1 % (0.0-2.0); EOSINOPHIL # 0.1 TH/MM3 (0-0.4); EOSINOPHIL % 1.5 % (0.0-4.0); HEMATOCRIT 38.8 % (35.0-46.0); HEMO FLAGS DIFF FINAL; LYMPH % 24.4 % (9.0-44.0); LYMPHOCYTE # 1.4 TH/MM3 (1.0-4.8); MEAN CELL VOLUME 93.8 FL (80.0-100.0); MEAN CORPUSCULAR HEMOGLOBIN 32.3 PG (27.0-34.0); MEAN CORPUSCULAR HGB CONC 34.4 % (32.0-36.0); MONO % 7.1 % (0.0-8.0); NEUT % 65.9 % (16.0-70.0); PLATELET COUNT 200 TH/MM3 (150-450); RED BLOOD COUNT 4.14 MIL/MM3 (4.00-5.30); RED CELL DISTRIBUTION WIDTH 12.2 % (11.6-17.2); WHITE BLOOD COUNT 5.7 TH/MM3 (4.0-11.0)
--- NOTE | 2017-02-11 12:03 | PD ---
HPI Chief Complaint: Respiratory Symptoms Time Seen by Provider: 11:32 Travel History International Travel<30 days: No Contact w/Intl Traveler<30days: No Traveled to known affect area: No History of Present Illness HPI 86yo F with emphysema and lung scarring, Afib, pacemaker here because she states her crackles in her lungs are harder. Pt was seen on 02/04/17 at [facility] for these symptoms and was discharged with levofloxacin. She was complaining of crackles in her lungs and had CXR negative for any acute finishes. Pt finished the antibiotics yesterday. Pt states she still has the same mild left sided chest pain which has been there for 2 weeks. Feels worst when she takes a deep breath. +Occasional cough. Uses 2 L NC at home as needed. Denies any n /v, abdominal pain, focal weakness or numbness. Pt was admitted for chest pain in July and had negative VQ scan to r/o PE. Pt states she has followed up with Dr. Vargas her transfusion aide and just saw him recently and everything was fine. Pt's planning engineer is Dr. Jiménez. States she has been very tired taking care of her after his heart surgery. PFSH Past Medical History Hx Anticoagulant Therapy: No Asthma: No Blood Disorders: No Heart Rhythm Problems: Yes Cancer: Yes (skin) Cardiac Catheterization: Yes (X 2) Cardiovascular Problems: Yes (CHOL, PACER ) High Cholesterol: Yes Chemotherapy: No Chest Pain: Yes (on admit) Congestive Heart Failure: No COPD: Yes Coronary Artery Disease: Yes Diabetes: No Diminished Hearing: No Endocrine: Yes Gastrointestinal Disorders: No Genitourinary: No Hypertension: No Immune Disorder: No Implanted Vascular Access Dvce: Yes Musculoskeletal: No Neurologic: No Psychiatric: No Reproductive: No Respiratory: Yes (EMPHYSEMA) Pneumonia: Yes Radiation Therapy: No Sleep Apnea: No Thyroid Disease: Yes ?: Not Menopausal: Yes Past Surgical History Body Medical Devices: pacemaker Cardiac Surgery: Yes (PACEMAKER) Eye Surgery: Yes (BILAT CATARACTS) Hysterectomy: Yes Pacemaker: Yes Thoracic Surgery: Yes (PLEURAL EMPYEMA SURGERY X 12, TWO RIBS REMOVED) Other Surgery: Yes (SKIN CA X 4) Social History Alcohol Use: Yes (WINE ONCE IN AWHILE) Tobacco Use: No Substance Use: No Allergies-Medications (Allergen,Severity, Reaction): Coded Allergies: Iodine (Verified Allergy, Severe, Anaphylaxis, 02/11/17) hypoTN Advair (Verified Allergy, Mild, other, 02/11/17) "makes me feel sick" Cortisone (Verified Allergy, Mild, 02/11/17) "makes me feel sick" Erythromycin (Verified Allergy, Mild, 02/11/17) "nausea, stomach burning" Penicillin (Verified Allergy, Mild, rash, 02/11/17) Procaine (Verified Allergy, Mild, 02/11/17) "makes me feel sick" Reported Meds & Prescriptions Reported Meds & Active Scripts Active Levofloxacin 750 Mg Tablet 750 Mg PO DAILY 6 Days Reported Triamterene-Hydrochlorothiazide 37.5-25 Mg Tab 1 Tab PO DAILY [O2] 2 Liter INH PRN Coreg (Carvedilol) 3.125 Mg Tab 3.125 Mg PO BID Review of Systems Except as stated in HPI: all other systems reviewed are Neg Physical Exam Narrative GENERAL: 86yo F in mild distress. SKIN: Focused skin assessment warm/dry. HEAD: Atraumatic. Normocephalic. CARDIOVASCULAR: Regular rate and rhythm. No murmur appreciated. RESPIRATORY: No accessory muscle use. Bibasilar crackles. No wheezing. GASTROINTESTINAL: Abdomen soft, non-tender, nondistended. No rebound tenderness or guarding. MUSCULOSKELETAL: No obvious deformities. No clubbing. No cyanosis. +Bilateral lower ext edema. NEUROLOGICAL: Awake and alert. No obvious cranial nerve deficits. Motor grossly within normal limits. Normal speech. PSYCHIATRIC: Appropriate mood and affect; insight and judgment normal. Data Data Last Documented VS Vital Signs Date Time Temp Pulse Resp B/P Pulse Ox O2 Delivery O2 Flow Rate FiO2 02/11/17 13:05 68 16 184/75 98 Nasal Cannula 2 02/11/17 11:20 97.6 Orders Complete Blood Count With Diff (02/11/17 11:45) Basic Metabolic Panel (Bmp) (02/11/17 11:45) B-Type Natriuretic Peptide (02/11/17 11:45) Troponin I (02/11/17 11:45) Iv Access Insert/Monitor (02/11/17 11:45) Ecg Monitoring (02/11/17 11:45) Oximetry (02/11/17 11:45) Oxygen Administration (02/11/17 11:45) Chest, Single Ap (02/11/17 11:45) Sodium Chloride 0.9% Flush (Ns Flush) (02/11/17 11:45) Labs Laboratory Tests Test 02/11/17 11:40 White Blood Count 5.7 TH/MM3 Red Blood Count 4.14 MIL/MM3 Hemoglobin 13.4 GM/DL Hematocrit 38.8 % Mean Corpuscular Volume 93.8 FL Mean Corpuscular Hemoglobin 32.3 PG Mean Corpuscular Hemoglobin 34.4 % Concent Red Cell Distribution Width 12.2 % Platelet Count 200 TH/MM3 Mean Platelet Volume 7.3 FL Neutrophils (%) (Auto) 65.9 % Lymphocytes (%) (Auto) 24.4 % Monocytes (%) (Auto) 7.1 % Eosinophils (%) (Auto) 1.5 % Basophils (%) (Auto) 1.1 % Neutrophils # (Auto) 3.7 TH/MM3 Lymphocytes # (Auto) 1.4 TH/MM3 Monocytes # (Auto) 0.4 TH/MM3 Eosinophils # (Auto) 0.1 TH/MM3 Basophils # (Auto) 0.1 TH/MM3 CBC Comment DIFF FINAL Differential Comment Sodium Level 135 MEQ/L Potassium Level 3.4 MEQ/L Chloride Level 99 MEQ/L Carbon Dioxide Level 29.4 MEQ/L Anion Gap 7 MEQ/L Blood Urea Nitrogen 11 MG/DL Creatinine 0.60 MG/DL Estimat Glomerular Filtration 94 ML/MIN Rate Random Glucose 86 MG/DL Calcium Level 9.4 MG/DL Troponin I LESS THAN 0.02 NG/ML B-Type Natriuretic Peptide 72 PG/ML MDM Medical Decision Making Medical Screen Exam Complete: Yes Emergency Medical Condition: Yes Interpretation(s) EKG: Paced rhythm. LAD. No concordance. Differential Diagnosis Pneumonia vs. Chronic emphysema vs. ACS Narrative Course 86yo F here because her crackles are louder than normal. Pt states she cant take prednisone, albuterol. Pt is well appearing and saturating at 98% on 2L NC. Labs reviewed, no leukocytosis. K:3.4, pt tolerating PO. Troponin negative. BNP 72. I do not think chest pain is cardiac and pt does not want to stay in the hospital. I did put a call out to Dr. Vargas, pt's transfusion aide but pt was upset and said it is not her heart and she wants to go home and she will follow up with Dr. Jiménez and do not want to wait for Dr. Vargas to call back. CXR showed no acute disease. I feel that pt is scared she will get pneumonia and wont be able to take care of her . I discussed with her planning engineer Dr. Jiménez and he said she can follow up with him in his [place] office this Saturday and to call and make an appointment. He said that she can use atrovent nebulizer at home. Pt states she will talk to him herself and does not want me to prescribe her anything. Return precautions given. Diagnosis Primary Impression: Chest crackles Patient Instructions: General Instructions Departure Forms: Tests/Procedures Additional Instructions: Please follow up with Dr. Jiménez in his [place] office this Saturday. Return to the ED if symptoms worsen. Med/Other Pt SpecificInfo: No Change to Meds Disposition: 01 DISCHARGE HOME Condition: Stable Lianet Chance DO Feb 11, 2017 12:03
[2017-02-11 12:10] LABS: CHLORIDE 99 MEQ/L (98-107); POTASSIUM 3.4 MEQ/L (3.5-5.1); SODIUM (NA) 135 MEQ/L (136-145)
[2017-02-11 12:13] LABS: ANION GAP 7 MEQ/L (5-15); BICARBONATE 29.4 MEQ/L (21.0-32.0); BLOOD UREA NITROGEN 11 MG/DL (7-18)
[2017-02-11 12:16] LABS: GLOMERULAR FILTRATION RATE 94 ML/MIN (>89)
--- NOTE | 2017-02-11 12:34 | RADRPT ---
EXAM DATE/TIME: 02/11/2017 11:53 [facility] COMPARISON: CHEST SINGLE AP, February 04, 2017, 13:26. INDICATIONS : Short of Breath MEDICAL HISTORY : Pneumonia, Empyema ENCOUNTER: Initial ACUITY: 1 week PAIN SCORE: 0/10 LOCATION: Bilateral chest FINDINGS: A single view of the chest demonstrates the lungs to be symmetrically aerated without evidence of mas s, infiltrate or effusion. Pacer is evident. The cardiomediastinal contours are unremarkable. Osse ous structures are intact. CONCLUSION: No acute disease. Imer Khanna MD FACR on February 11, 2017 at 12:32 Board Certified Radiologist. This report was verified electronically.
[2017-02-11 13:05] VITALS: BP 184/75; PULSE 68; RESP 16; O2SAT 98
--- NOTE | 2017-02-12 15:54 | EKG ---
Date Performed: 02/11/2017 Time Performed: 11:19:38 PTAGE: 86 years EKG: ELECTRONIC ATRIAL PACEMAKER ELECTRONIC VENTRICULAR PACEMAKER ABNORMAL RHYTHM ECG INTERPRETA TION BASED ON A DEFAULT AGE OF 40 YEARS PREVIOUS TRACING : 02/04/2017 12.39 DOCTOR: Yady Toscano Interpretating Date/Time 02/12/2017 15:47:25
== END 2017-02-11 13:57 | disposition home or self-care (01) ==
LOC: PHED 11:08
DX: R09.89 Other specified symptoms and signs involving the circulatory and respiratory systems (principal); J44.9 Chronic obstructive pulmonary disease, unspecified; I25.10 Atherosclerotic heart disease of native coronary artery without angina pectoris; I48.91 Unspecified atrial fibrillation; R94.31 Abnormal electrocardiogram [ECG] [EKG]; Z95.0 Presence of cardiac pacemaker
CPT/HCPCS: 71010; 80048; 83880; 84484; 85025; 93005; 99284